=== PATIENT | female | born 1985 | race Caucasian/White ===

== ENCOUNTER → 2021-04-09 | Outpatient (CLI) | payer OTHER ==
[~2021-04-09] MED LIST: COL-RITE250 MG PO; DESYREL 50 MG T50 MG PO; FERROUS SULFAT325 M2 PO; IBUPROFEN600 MG PO; IMITREX100 MG PO; LABETALOL HCL200 MG PO; NAPROXEN375 MG PO; NORCO 5-325 TA1 EACH PO; NORCO 7.5-3251 EACH PO; OMEPRAZOLE20 MG PO; PROVENTIL HFA6.7 GM INH; PROVERA10 MG PO; Q-VAR INH; TOPAMAX25 MG PO; VOLTAREN100 GM TOP; ZOFRAN4 MG PO; ZOLOFT50 MG PO
== END ==
LOC: HEART 5 08:58
DX: I08.1 Rheumatic disorders of both mitral and tricuspid valves (principal)
CPT/HCPCS: 93306